=== PATIENT | female | born 1950 | race Caucasian/White ===

== ENCOUNTER 2017-11-28 11:15 | Emergency (ER) | payer MEDICARE, OTHER, MEDICAID ==
[2017-11-28] MEDS: SOD CHLORIDE 0.9% 1,000 ML IV (12:08)
[2017-11-28] MEDS: morphine 4 MG/ML VIAL IV (12:08)
[2017-11-28] MEDS: ONDANSETRON 4 MG INJ IV (12:08)
[2017-11-28 12:16] LABS: ADD MAN DIFF? NO
[2017-11-28 12:19] LABS: WHITE BLOOD COUNT 3.8 10^3/ul (4.8-10.8)
[2017-11-28 12:19] LABS: BASOPHILS % 0.5 % (0.0-2.0); EOSINOPHILS # 0.1 10^3/ul (0.0-0.5); EOSINOPHILS % 2.3 % (0.0-7.0); HEMATOCRIT 38.8 % (37.0-47.0); LYMPHOCYTES % 27.1 % (15.0-51.0); MEAN CORPUSCULAR HEMOGLOBIN 32.4 pg (29.0-33.0); MEAN CORPUSCULAR HGB CONC 33.5 g/dl (32.0-37.0); MEAN CORPUSCULAR VOLUME 96.8 fl (82.0-101.0); MEAN PLATELET VOLUME 9.5 fl (7.4-10.4); MONOCYTE # 0.5 10^3/ul (0.3-0.9); MONOCYTES % 11.7 % (0.0-11.0); NEUTROPHIL # 2.2 10^3/ul (1.6-7.5); NEUTROPHILS % 58.1 % (39.0-77.0); PLATELET COUNT 192 10^3/UL (140-415); RED BLOOD COUNT 4.01 10^6/ul (4.20-5.40); RED CELL DISTRIBUTION WIDTH 13.2 % (11.5-14.5)
[2017-11-28 12:37] LABS: ANION GAP 8 (8-16); BLOOD UREA NITROGEN 25 mg/dl (7-20); CALCIUM 9.1 mg/dl (8.4-10.2); CARBON DIOXIDE 30 mmol/L (21-31); CHLORIDE 108 mmol/L (97-110); CREATININE 1.13 mg/dl (0.44-1.00); GLUCOSE 101 mg/dl (70-220); SODIUM 142 mmol/L (135-144)
[2017-11-28 12:38] LABS: INR 1.83; PROTIME 21.6 Sec (11.9-14.9); PT RATIO 1.7
[2017-11-28 12:39] LABS: PARTIAL THROMBOPLASTIN TIME 41.5 Sec (25.0-35.0)
[2017-11-28] MEDS ORDERED: SOD CHLORIDE 0.9% 100 ML (12:44)
[2017-11-28] MEDS ORDERED: IODIXANOL LOCM 100 ML BTL (12:44)
[2017-11-28 12:49] LABS: TROPONIN-I < 0.012 ng/ml (0.000-0.120)
== END 2017-11-28 14:47 | disposition home or self-care (01) ==
LOC: E/R 11:15
DX: N28.89 Other specified disorders of kidney and ureter (principal); R10.84 Generalized abdominal pain; I10 Essential (primary) hypertension; I25.10 Atherosclerotic heart disease of native coronary artery without angina pectoris; Z98.61 Coronary angioplasty status
CPT/HCPCS: 36415; 71275; 74177; 80048; 84484; 85025; 85610; 85730; 93005; 96374; 96375; 99285-25